=== PATIENT | male | born 1995 | race Caucasian/White ===

== ENCOUNTER 2024-05-09 07:02 | Day surgery (SDC) | payer OTHER ==
[~2024-05-09] VITALS: Ht 180.3 cm; Wt 64.1 kg
[~2024-05-09 07:02] MED LIST: IBUP-1114 PO; MAPA500C PO
[2024-05-09] MEDS ORDERED: propofoL 200 MG/20 ML VIAL As Ordered ONE (08:11)
[2024-05-09] MEDS ORDERED: ROCURONIUM BROMIDE 50MG/5ML VIAL As Ordered ONE (08:11)
[2024-05-09] MEDS ORDERED: fentaNYL 100 MCG/2 ML INJECTION As Ordered ONE (08:11)
[2024-05-09] MEDS ORDERED: ONDANSETRON 4MG 2ML VIAL As Ordered ONE (08:11)
[2024-05-09] MEDS ORDERED: LIDOCAINE 2% 100MG/5ML SDV (FOR ANES.) As Ordered ONE (08:11)
[2024-05-09] MEDS ORDERED: MIDAZOLAM INJ 2MG/2ML VIAL As Ordered ONE (08:11)
[2024-05-09] MEDS: ceFAZolin SOD 2 GM in IV 1 EA IV ONE (09:23)
[2024-05-09] MEDS ORDERED: ACETAMINOPHEN 1000MG 100ML IV BAG As Ordered ONE (09:34)
[2024-05-09] MEDS: TRANEXAMIC ACID 100 MG/ML 10ML VIAL As Ordered ONE (09:36)
[2024-05-09] MEDS: EPINEPHrine 1MG/ML INJ 30ML MD-VIAL As Ordered ONE (10:30)
[2024-05-09] MEDS: TRANEXAMIC ACID 100 MG/ML 10ML VIAL IV ONE (10:36)
[2024-05-09] MEDS ORDERED: fentaNYL 250 MCG/5 ML INJECTION As Ordered ONE (10:39)
[2024-05-09] MEDS ORDERED: KETOROLAC 60MG 2ML VIAL As Ordered ONE (11:08)
[2024-05-09] MEDS ORDERED: ONDANSETRON 4MG 2ML VIAL IV PRN (13:25)
[2024-05-09] MEDS ORDERED: MORPHINE 2 MG/ML 1ML VIAL IV PRN (13:25)
[2024-05-09] MEDS ORDERED: fentaNYL 100 MCG/2 ML INJECTION IV PRN (13:25)
[2024-05-09] MEDS ORDERED: oxyCODONE 5MG TAB PO PRN (13:25)
[2024-05-09 14:45] VITALS: BP 128/75; TEMP 97.9; O2SAT 99
== END 2024-05-09 15:10 | disposition home or self-care (01) ==
LOC: M SDC 07:02
PROVIDERS: ATTEND Orthopaedic Surgery
DX: S83.512A Sprain of anterior cruciate ligament of left knee, initial encounter (principal)
CPT/HCPCS: 29888; 73560; C1713; C1762; C9290; J0131; J0171; J0665; J0690; J1100; J1885; J2250; J2405; J3010

== ENCOUNTER 2024-06-14 13:38 | Emergency (ER) | payer OTHER ==
[~2024-06-14] VITALS: Ht 180.3 cm; Wt 70.5 kg
[2024-06-14] MEDS ORDERED: CELE0.09 (13:51)
[2024-06-14] MEDS ORDERED: ACET1TAB55 (13:51)
[2024-06-14 14:16] LABS: BASO % 0.4 % (0.0-1.0); EOS # 0.1 10^3/uL (0.0-0.5); EOS % 0.6 % (0.0-3.0); HEMATOCRIT 43.6 % (42.0-52.0); HEMOGLOBIN 14.8 g/dl (13.5-17.5); LYMPH # 1.3 10^3/uL (1.5-5.0); LYMPH % 12.2 % (24.0-44.0); MEAN CORPUSCULAR HEMOGLOBIN 29.2 pg (27.0-33.0); MEAN CORPUSCULAR HGB CONC 33.9 g/dl (32.0-36.5); MEAN CORPUSCULAR VOLUME 86.2 fl (80.0-96.0); MONO # 0.8 10^3/uL (0.0-0.8); MONO % 7.5 % (2.0-8.0); NEUTROPHILS # 8.5 10^3/uL (1.5-8.5); NEUTROPHILS % 79.1 % (36.0-66.0); PLATELET COUNT, AUTOMATED 215 10^3/uL (150-450); RED BLOOD COUNT 5.06 10^6/uL (4.30-6.10); WHITE BLOOD COUNT 10.7 10^3/uL (4.0-10.0)
[2024-06-14 14:44] LABS: LIPASE 33 U/L (12-53)
[2024-06-14 14:46] LABS: ALBUMIN 4.3 G/DL (3.2-5.2); ALKALINE PHOSPHATASE 65 U/L (40-129); ALT/SGPT 11 U/L (7.0-40); AST/SGOT < 8 U/L (<34); BILIRUBIN,DIRECT 0.3 MG/DL (<0.4); BILIRUBIN,TOTAL 0.8 MG/DL (0.3-1.2); TOTAL PROTEIN 7.2 G/DL (5.7-8.2)
[2024-06-14] MEDS ORDERED: ISOVUE-370 76% 100ML VIAL As Ordered ONE (16:07)
[2024-06-14] MEDS: ONDANSETRON 4MG 2ML VIAL IV ONE (16:14)
[2024-06-14] MEDS: KETOROLAC 30 MG/ML 1ML VIAL IV ONE (16:14)
[2024-06-14 19:45] LABS: Trichomonas vaginalis (AMP) NOT DETECTED (NEGATIVE)
[2024-06-14 20:09] LABS: GC DNA AMPLIFICATION NEGATIVE (NEGATIVE)
[2024-06-14] MEDS ORDERED: DOXY100T PO (20:18)
[2024-06-14] MEDS: DOXYCYCLINE HYCLATE 100MG TABLET PO ONE (20:24)
[2024-06-14 20:28] VITALS: BP 103/64; TEMP 96.5; O2SAT 99
== END 2024-06-14 20:31 | disposition home or self-care (01) ==
LOC: M ED 13:38
DX: N45.1 Epididymitis (principal); N43.3 Hydrocele, unspecified; A74.9 Chlamydial infection, unspecified; F17.290 Nicotine dependence, other tobacco product, uncomplicated
CPT/HCPCS: 74177; 76870; 80047; 80076; 81001; 83690; 85025; 87086; 87661; 87810; 87850; 93976; 96374; 96375; 99284; J1885; J2405; Q9967

== ENCOUNTER 2025-02-02 21:05 | Emergency (ER) | payer OTHER ==
[~2025-02-02] VITALS: Ht 180.3 cm; Wt 70.5 kg
[~2025-02-02 21:05] MED LIST changes: +ACET1TAB55; +CELE0.09; +DOXY100T PO
[2025-02-03 00:26] VITALS: BP 121/87; TEMP 98.1; O2SAT 100
== END 2025-02-03 01:20 | disposition left against medical advice (07) ==
LOC: M ED 21:05
DX: Z53.21 Procedure and treatment not carried out due to patient leaving prior to being seen by health care provider (principal)